=== PATIENT | female | born 1980 | race Caucasian/White ===

== ENCOUNTER → 2023-11-04 10:14 | Outpatient (CLI) | payer BC, SELFPAY ==
[2023-11-04 12:10] LABS: Add Manual Diff / Slide Review NO; Basophils Absolute Auto 0 /uL (0-100); Basophils Percent Auto 0.6 % (0-2); Eosinophils Absolute Auto 200 /uL (0-450); Hematocrit 44.8 % (36-46); Hemoglobin 15.5 g/dL (12.0-16.0); Lymphocytes Absolute Auto 2000 /uL (1100-4500); Lymphocytes Percent Auto 32.3 % (25-40); Mean Corpuscular HGB Conc 34.6 % (30-36); Mean Corpuscular Hemoglobin 28.2 PG (26-34); Mean Corpuscular Volume 81.6 fL (80-100); Monocytes Absolute Auto 400 /uL (0-900); Monocytes Percent Auto 6.3 % (3-14); Neutrophils Absolute Auto 3600 /uL (1500-7000); Neutrophils Percent Auto 57.8 % (50-75); Platelet Count 237 X10^3/uL (150-400); Red Blood Cell Count 5.49 X10^6/uL (4.0-5.2); Red Cell Distribution Width 13.1 % (11.6-14.8); White Blood Cell Count 6.2 X10^3/uL (4.5-11.0)
[2023-11-04 12:18] LABS: Hemoglobin A1C% w Est Avg Glu 5.8 % (4.0-6.0)
[2023-11-04 12:37] LABS: Alanine Aminotransferase 56 IU/L (<35); Albumin 4.4 g/dL (3.5-5.0); Albumin Globulin Ratio 1.5 (1.0-2.8); Alkaline Phosphatase 43 U/L (38-126); Aspartate Aminotransferase 36 IU/L (14-36); Blood Urea Nitrogen 13 mg/dL (7-17); Calcium 9.6 mg/dL (8.4-10.2); Carbon Dioxide 28 mmol/L (22-32); Chloride 100 mmol/L (98-107); Cholesterol 176 mg/dL (140-199); Estimated Glomerular Filt Rate > 60 mL/min (>60); Glucose 103 mg/dL (70-100); HDL Cholesterol 50 mg/dL (40-60); HEMOLYSIS < 15 (0-50); LDL Cholesterol Calculated 114 mg/dL (<100); Potassium 4.2 mmol/L (3.4-5.1); Sodium 138 mmol/L (137-145); Total Protein 7.4 g/dL (6.3-8.2); Triglycerides 62 mg/dL (35-150)
[2023-11-04 13:03] LABS: TSH w/ Reflex to FT4 1.26 uIU/mL (0.47-4.68)
[2023-11-04 17:43] LABS: HIV 1 & 2 Ab/Ag 4th Gen Combo NEGATIVE (NEGATIVE); Hep C Virus Ab w/Reflex Quant NEGATIVE s/c (NEGATIVE)
== END ==
PROVIDERS: PCP Family Medicine; Referring Provider Family Medicine; Visit Provider Family Medicine
DX: Z13.1 Encounter for screening for diabetes mellitus (principal); Z13.220 Encounter for screening for lipoid disorders; E66.9 Obesity, unspecified; R63.5 Abnormal weight gain; Z11.4 Encounter for screening for human immunodeficiency virus [HIV]; Z11.59 Encounter for screening for other viral diseases
CPT/HCPCS: 36415; 80053; 80061; 83036; 84443; 85025; 86803; 87389

== ENCOUNTER → 2024-11-03 09:49 | Outpatient (CLI) | payer BC, SELFPAY ==
--- NOTE | 2024-11-03 09:50 | DI.RAD.S_ITS ---
PROCEDURE: XR CHEST 2V INDICATIONS: Cough TECHNIQUE: 2 views of the chest were acquired. COMPARISON: None. FINDINGS: Surgical changes and devices: None. Lungs and pleura: Lungs are clear. No pleural effusions or pneumothorax. Mediastinum: Mediastinal contours are normal. Heart size is normal. Bones and chest wall: No suspicious bony abnormalities. Soft tissues appear unremarkable. IMPRESSION: No acute cardiopulmonary abnormality is seen. Dictated by: Navi Burton M.D. on 11/03/2024 at 10:07 Approved by: Navi Burton M.D. on 11/03/2024 at 10:10
== END ==
PROVIDERS: PCP Family Medicine; Referring Provider Physician Assistant Surgical; Visit Provider Physician Assistant Surgical
DX: R05.9 Cough, unspecified (principal)
CPT/HCPCS: 71046

== ENCOUNTER → 2024-11-18 12:21 | Outpatient (CLI) | payer BC, SELFPAY ==
--- NOTE | 2024-11-18 | DI.MG.S_ITS ---
BILATERAL DIGITAL SCREENING MAMMOGRAM 3D/2D WITH CAD: 11/18/2024 CLINICAL: Routine screening. Comparison is made to exam dated: 07/21/2022 mammogram - outside location. The breasts are heterogeneously dense, which may obscure small masses (category c / 51-75% glandular tissue). Current study was also evaluated with a Computer Aided Detection (CAD) system. There is an equal density focal asymmetry in the right breast at 11 o'clock middle depth. This is more prominent and increased in size. No other significant masses, calcifications, or other findings are seen in either breast. IMPRESSION: INCOMPLETE: NEED ADDITIONAL IMAGING EVALUATION The equal density focal asymmetry in the right breast is indeterminate. Additional views with possible ultrasound are recommended. Based on the Tyrer Cuzick model (a risk assessment model) the patient's lifetime risk is 14.7% and her 10 year risk is 2.7%. According to the ACR, ACS, and NCCN guidelines, an annual breast MRI exam along with mammogram is recommended if the patient's lifetime risk is 20% or greater. This exam was interpreted at Station ID: [id number]. NOTE: For mammograms, a report in lay terms will be sent to the patient. Approximately 15% of breast malignancies will not be visualized mammographically. In the management of a palpable breast mass, a negative mammogram must not discourage biopsy of a clinically suspicious lesion. Electronically Signed By: Reyes taylor/lyn:11/23/2024 18:16:11 letter sent: Additional Imaging Needed ACR BI-RADS Category 0: Incomplete: Need Additional Imaging Evaluation
== END ==
PROVIDERS: PCP Family Medicine; Referring Provider Family Medicine; Visit Provider Family Medicine
DX: Z12.31 Encounter for screening mammogram for malignant neoplasm of breast (principal); R92.333 Mammographic heterogeneous density, bilateral breasts
CPT/HCPCS: 77063; 77067

== ENCOUNTER → 2024-12-19 08:34 | Outpatient (CLI) | payer BC, SELFPAY ==
--- NOTE | 2024-12-19 08:35 | DI.US.S_ITS ---
PROCEDURE: US ABDOMEN LIMITED INDICATIONS: ELEVATED LIVER ENZYMES TECHNIQUE: Real-time scanning was performed of the abdominal and retroperitoneal organs, with image documentation. COMPARISON: None. FINDINGS: Liver: Liver is normal in size. Increased liver parenchymal echotexture is seen. 2.4 x 1.6 x 1.8 cm hypoechoic and solid appearing structure is noted in anterior right hepatic lobe and show no internal vascularity. Normal hepatopetal flow is seen in patent main portal vein. Gallbladder: No gallstones. No gallbladder wall thickening or pericholecystic fluid. No sonographic Gamboa's sign. Biliary ducts: Intrahepatic bile ducts are non-dilated. Extrahepatic bile duct caliber measures 5.5 mm. Normal is 6-7 mm or less in diameter, or 10 mm or less post-cholecystectomy. Pancreas: Visualized portions of the pancreas are sonographically normal. Miscellaneous: No free abdominal fluid. IMPRESSION: 1. Moderate to severe hepatic steatosis. 2.4 x 1.6 x 1.8 cm hypoechoic and solid appearing structure in anterior right hepatic lobe and show no internal vascularity. Finding may represent hemangioma. Further evaluation with MRI of liver without and with contrast can be done if indicated. 2. Rest of the exam is unremarkable. Dictated by: Mendoza Blackmon M.D. on 12/19/2024 at 10:50 Approved by: Mendoza Blackmon M.D. on 12/19/2024 at 10:52
== END ==
LOC: US 08:34
PROVIDERS: PCP Family Medicine; Referring Provider Advanced Practice Midwife; Visit Provider Advanced Practice Midwife
DX: R74.9 Abnormal serum enzyme level, unspecified (principal); K76.0 Fatty (change of) liver, not elsewhere classified
CPT/HCPCS: 76705

== ENCOUNTER → 2024-12-22 09:25 | Outpatient (CLI) | payer BC, SELFPAY ==
--- NOTE | 2024-12-22 09:26 | DI.MG.S_ITS ---
MM diagnostic mammo unilat RT, US breast RT limited: 12/22/2024 BI-RADS: 4A CLINICAL: 44-year old female for right diagnostic mammogram and right diagnostic breast ultrasound that is a recall from screening, bilateral, digital, tomosynthesis, w/mammo cad on 11/18/2024. [facility] lifetime [facility] of 14.4%. PRIOR EXAMS 11/18/2024, 07/21/2022. MAMMOGRAPHY TECHNIQUE: 2D and 3D (tomosynthesis) digital mammographic views obtained, with additional images as needed for full coverage. Current study was also evaluated with a Computer Aided Detection (CAD) system. ULTRASOUND TECHNIQUE Right Axilla. Real-time eldridge scale and color doppler imaging of the area of clinical interest was performed with image documentation. TARGETED Right Breast Ultrasound: Real-time ultrasound exam was performed focused to area of clinical and/or imaging concern. DENSITY Right: C. The breasts are heterogeneously dense, which may obscure small masses. MAMMOGRAPHY FINDINGS Right (finding-1): Upper Outer at 10:00, Middle depth, measuring 1.5 cm: Correlating with findings on screening mammogram there is a circumscribed, oval, high-density mass present. This finding is increased in conspicuity and size compared to prior mammogram from 2021. Right (finding-2): Upper Inner Quadrant, Middle depth: There is a focal asymmetry present. This finding is less conspicuous with additional views, favored to represent benign fibroglandular tissue. ULTRASOUND FINDINGS No abnormal lymph nodes are seen in the axilla. Right (finding-1): Upper Outer at 10:00, 6 cm from nipple, measuring 1.3 x 1.7 x 0.9 cm: Correlating with findings on mammogram there is an oval, circumscribed mass. Doppler shows internal vascularity. Right (finding-2): Upper Inner at 2:00, 3 cm from nipple: No suspicious sonographic finding present. IMPRESSION: Right (Mass): Upper Outer at 10:00, 6 cm from nipple, measuring 1.3 x 1.7 x 0.9 cm * Low Suspicion for Malignancy. RECOMMENDATIONS Right: Upper Outer at 10:00, 6 cm from nipple * Ultrasound-guided biopsy for further evaluation. COMMENTS: Findings and recommendations were conveyed to the patient by Dr. Mendoza Blackmon during today's evaluation, prior to the patient leaving the facility. OVERALL ASSESSMENT CATEGORY BI-RADS-4: Suspicious. ELECTRONICALLY SIGNED: Danna Arndt M.D. on 12/22/2024 at 02:56:30 PM PT Interpreting Station ID: [id number]
== END ==
PROVIDERS: PCP Family Medicine; Referring Provider Family Medicine; Visit Provider Family Medicine
DX: R92.8 Other abnormal and inconclusive findings on diagnostic imaging of breast (principal); N63.11 Unspecified lump in the right breast, upper outer quadrant; R92.333 Mammographic heterogeneous density, bilateral breasts
CPT/HCPCS: 76642; 77065; G0279

== ENCOUNTER → 2025-01-26 | Outpatient (CLI) | payer BC, SELFPAY ==
--- NOTE | 2025-01-26 | PATH_ITS ---
[facility] Accession Number: [id number] No. of containers..01 Tissue . 01 Material submitted: . breast - RIGHT BREAST MASS 10:00 6 CMFN . 01 Diagnosis: RIGHT BREAST MASS, 10 O'CLOCK, 6 CM FROM THE NIPPLE, NEEDLE CORE BIOPSY: Fibroepithelial lesion, consistent with fibroadenoma. MRV 01/29/2025 1429 Local . 01 Comment: As part of ongoing quality technician, this case is also reviewed by Dr. Jim Soto, who agrees with the interpretation. . 01 Electronically signed: . Rhea Hunter MD, Pathologist NPI- [id number] . 01 Gross description: . Received in formalin, labeled with two identifiers and no site on jar, are multiple yellow to santos soft tissue fragments aggregating to 1.4 x 1.3 x 0.3 cm. Inked blue. Filtered and submitted entirely in cassette A1. . The specimen was removed on 01/26/2025, time not provided. Cold ischemic time cannot be calculated. Total fixation time is approximately 53 hours. ([id number]) /FRR 01/27/2025 1020 Local . 01 Pathologist provided ICD-10: D24.9 . 01 CPT . 342913 Specimen Comment: A courtesy copy of this report has been sent to [facility] Performed at: [address] [address], [place], [place] [id number] MD Ronnie Covington MD Phone: [phone]
--- NOTE | 2025-01-26 14:35 | DI.MG.S_ITS ---
MM diagnostic mammo [id number]: 01/26/2025. BI-RADS: None CLINICAL: 44-year old female for right diagnostic mammogram that is a recall from screening, bilateral, digital, tomosynthesis, w/mammo cad on 11/18/2024. Tyrer-Cuzick lifetime risk of 14.4%. No personal or first-degree family history of breast cancer. PRIOR EXAMS Mammogram(s): 12/22/2024. Breast Ultrasound(s): 12/22/2024. One Other Exam on 11/18/2024. MAMMOGRAPHY TECHNIQUE: 2D and 3D (tomosynthesis) digital mammographic views obtained, with additional images as needed for full coverage. Current study was also evaluated with a Computer Aided Detection (CAD) system. DENSITY Right: C. The breasts are heterogeneously dense, which may obscure small masses. MAMMOGRAPHY FINDINGS Right: Upper Outer at 10:00, 6 cm from nipple: There is a (Tumark(R) Vision) biopsy marker present. IMPRESSION: Right * Biopsy marker present. OVERALL ASSESSMENT CATEGORY BI-RADS None: This exam requires no BI-RADS. ELECTRONICALLY SIGNED: Manuel Soni M.D. on 02/05/2025 at 08:45:38 AM PT Interpreting Station ID: [id number]
--- NOTE | 2025-01-26 14:45 | DI.US.S_ITS ---
Patient Name: MONICA DURON date: 1980 Sex: F Attending Physician: Bradford Indications: Date: 02/05/2025 08:43 At the request of: CYN KHAN Procedure: US bx breast perc w vac device US bx breast perc w vac device: 01/26/2025. Rad-Path Correlation: Pending CLINICAL: 44-year old female for right procedure that resulted from diagnostic mammogram on 12/22/2024. Tyrer-Cuzick lifetime risk of 14.4%. No personal or first-degree family history of breast cancer. PRIOR EXAMS Mammogram(s): 12/22/2024. Breast Ultrasound(s): 12/22/2024. One Other Exam on 11/18/2024. CONSENT Risks including but not limited to bleeding and infection, benefits and alternatives were discussed with the patient. The patient agreed to the procedure and signed informed consent. Time out procedure was used. ROUTINE Right: Patient positioned in the prone or prone-oblique position, prepped and draped in the usual manner using sterile technique. TECHNIQUE Right: Upper Outer at 10:00, 6 cm from nipple: Procedure: Stereotactically-guided vacuum-assisted biopsy of calcifications. Device: 9-gauge vacuum-assisted biopsy instrument. saperatec(R) Brevera 9g. Anesthesia: Local anesthesia obtained using 10 ml 1%-lidocaine. Secondary local anesthesia obtained using 4 ml 1%-lidocaine with epinephrine. Skin Entry: Incision with #11 blade. Specimens: 2. Targeting Confirmation: Additional Images, Specimen Imaging, and Post-Procedure Imaging. Continued Report - Page 2 of 2 Patient Name: MONICA DURON date: 1980 Sex: F Attending Physician: Bradford Indications: Date: 02/05/2025 08:43 At the request of: CYN KHAN Procedure: US bx breast perc w vac device Specimen Imaging: Imaging shows calcifications present within specimen. Post-procedure imaging: Post-procedure imaging confirms in target location. Rad/Path Correlation: Pending receipt of pathology report. Conclusion: Stereotactically-guided Vacuum-assisted biopsy with post-procedure CC and ML mammographic views, Right: Upper Outer at 10:00, 6 cm from nipple COMPLICATIONS: No complications were encountered while the patient was in our department. DISPOSITION The patient left our department in good condition with aftercare instructions and urged to contact us should any problem arise. SUMMARY Right: Upper Outer at 10:00, 6 cm from nipple: Stereotactically-guided vacuum- assisted biopsy of calcifications. PATHOLOGY Right: Upper Outer at 10:00, 6 cm from nipple: Radiologist-Pathologist Correlation: Pending receipt of pathology report. ELECTRONICALLY SIGNED: Manuel Soni M.D. on 02/05/2025 at 08:43:47 AM PT Interpreting Station ID: [id number]
== END ==
PROVIDERS: PCP Family Medicine; Referring Provider Family Medicine; Visit Provider Family Medicine
DX: N63.11 Unspecified lump in the right breast, upper outer quadrant (principal); R92.8 Other abnormal and inconclusive findings on diagnostic imaging of breast; N64.89 Other specified disorders of breast
CPT/HCPCS: 19083; 77065

== ENCOUNTER → 2025-03-09 09:38 | Outpatient (CLI) | payer BC, SELFPAY | PROVIDERS: PCP Family Medicine; Visit Provider Nurse Practitioner Family | DX: L08.9 Local infection of the skin and subcutaneous tissue, unspecified (principal) | CPT/HCPCS: 87070; 87077; 87147; 87186; 87205 ==

== ENCOUNTER → 2025-08-01 07:55 | Outpatient (CLI) | payer BC, SELFPAY | PROVIDERS: PCP Family Medicine; Referring Provider Family Medicine; Visit Provider Internal Medicine | DX: R16.0 Hepatomegaly, not elsewhere classified (principal) | CPT/HCPCS: 36415 ==

== ENCOUNTER → 2025-08-31 09:51 | Outpatient (CLI) | payer BC, SELFPAY ==
--- NOTE | 2025-08-31 09:54 | DI.CT.S_ITS ---
PROCEDURE: CT ABDOMEN LIVER PROTOCOL INDICATIONS: Liver mass TECHNIQUE: 4 phase scanning was performed. Non-contrast 5 mm axial sections acquired from the diaphragm to the iliac crests. Following the administration of intravenous contrast, 5 mm thick arterial-phase, portal venous-phase, and 5-minute delayed phase images were acquired through the liver. 5 mm thick coronal and sagittal reformats were performed. For radiation dose reduction, the following was used: automated exposure control, adjustment of mA and/or kV according to patient size. COMPARISON: [facility], ABDOMEN LIMITED, 12/19/2024, 8:45. FINDINGS: Image quality: Diagnostic Lower chest: Lung bases appear unremarkable. Normal heart size Liver: Minimal to mild background steatosis. In segment 7 there is a 1.7 cm lesion, with delayed phase fill-in and discontinuous peripheral enhancement seen on venous phase. Gallbladder and biliary system: No ductal dilation. Unremarkable gallbladder Pancreas: No ductal dilation Spleen: Nonenlarged Adrenals: No discrete nodules Kidneys: No solid renal mass. No hydronephrosis. Vessels and lymph nodes: No abdominal aortic aneurysm. No lymph nodes enlarged by size criteria. Bowel and peritoneum: Moderate colonic fecal loading. No bowel obstruction. Body wall: Unremarkable Bones: There are degenerative osseous changes. No aggressive appearing osseous abnormality L3-L4 pars defects with trace anterolisthesis and significant focal disc space height loss IMPRESSION: Segment [address], most compatible with hemangioma (assuming patient does not otherwise have a malignancy history). Focal degenerative changes anterolisthesis and pars defects at L3-L4. Dictated by: Jeff Parsons M.D. on 08/31/2025 at 10:52 Approved by: Jeff Parsons M.D. on 08/31/2025 at 10:58
== END ==
LOC: CT 09:53
PROVIDERS: PCP Family Medicine; Referring Provider Internal Medicine; Visit Provider Internal Medicine
DX: R16.0 Hepatomegaly, not elsewhere classified (principal); K76.9 Liver disease, unspecified
CPT/HCPCS: 74170; Q9967